=== PATIENT | female | born 1995 | race Asian ===

== ENCOUNTER 2020-09-19 16:44 | Emergency (ER) | payer MEDICAID ==
[~2020-09-19] VITALS: Ht 167.6 cm; Wt 86.2 kg
[2020-09-19 17:00] VITALS: BP_SYST 157
--- NOTE | 2020-09-19 17:00 | NUR ---
Patient to ER bed 7 to gown for evaluation. Side rails up. Report given to MEI.
--- NOTE | 2020-09-19 17:05 | NUR ---
PT AAO REPORTING VAGINAL BLEEDING FOR THE PAST MONTH WITH BLOOD CLOTS. PT REPORTS DIZZINESS AND WEAKNESS CURRENTLY AND 3/10 CRAMPING PAIN.
--- NOTE | 2020-09-19 17:10 | NUR ---
DR STEVENSON IN TO ASSESS
[2020-09-19 17:58] LABS: BILIRUBIN,URINE NEGATIVE (NEGATIVE); BLOOD, URINE 3+ (NEGATIVE); CLARITY/URINE CLOUDY (CLEAR); COLOR,URINE YELLOW (YELLOW); GLUCOSE,URINE NEGATIVE (NEGATIVE); KETONES,URINE TRACE (NEGATIVE); LEUKOCYTE ESTERASE ,URINE NEGATIVE (NEGATIVE); NITRITE, URINE NEGATIVE (NEGATIVE); PROTEIN URINE NEGATIVE (NEGATIVE); UROBILINOGEN,URINE 0.2 (0.2-1.0)
[2020-09-19 18:09] LABS: BACTERIA,URINE MANY /HPF (None Seen); RBC,URINE >100 /HPF (0-3); WBC,URINE 0-3 /HPF (0-3)
--- NOTE | 2020-09-19 18:10 | NUR ---
LABS OBTAINED, PT CALM, ALERT, RESP UNLABORED, SKIN WARM AND DRY. DENIES CP/SOB
--- NOTE | 2020-09-19 18:26 | NUR ---
TOLERATING PO INTAKE WELL
[2020-09-19 18:31] LABS: BASOPHILS % (AUTO) 0.2 % (0.0-2.0); EOSINOPHILS % (AUTO) 0.4 % (0.0-4.0); HEMATOCRIT 32.5 % (36-48); HEMOGLOBIN 9.9 g/dL (12.0-16.0); LYMPHOCYTES # (AUTO) 1.5 K/uL (1.0-5.5); LYMPHOCYTES % (AUTO) 15.6 % (20.5-51.5); MEAN CORPUSCULAR HEMOGLOBIN 19 pg (27-31); MEAN CORPUSCULAR HGB CONC 31 % (32-36); MEAN CORPUSCULAR VOLUME 61 fL (79.0-98.0); MONOCYTES # (AUTO) 0.5 K/uL (0.0-1.0); MONOCYTES % (AUTO) 4.9 % (1.7-9.3); NEUTROPHILS # (AUTO) 7.7 K/uL (1.8-7.7); NEUTROPHILS % (AUTO) 78.9 % (40.0-70.0); PLATELET COUNT (AUTO) 293 K/uL (130-430); RED BLOOD CELL COUNT(AUTO) 5.37 MIL/uL (4.2-6.2); RED CELL DISTRIBUTION WIDTH 22.3 % (9.0-15.0); WHITE BLOOD COUNT (AUTO) 9.8 K/uL (4.8-10.8)
[2020-09-19] MEDS ORDERED: SULFAMETHOXAZOLE/TRIMETHOPR DS 1 TABLET PO ONE (19:00)
--- NOTE | 2020-09-19 19:24 | NUR ---
OFF TO ULTRASOUND, STEADY GAIT
[2020-09-19 20:41] VITALS: BP_SYST 136
--- NOTE | 2020-09-19 20:43 | NUR ---
Patient given written and verbal discharge instructions and verbalizes understanding. ER MD discussed with patient the results and treatment provided. Patient in stable condition. ID arm band removed. Rx of given. Patient educated on pain management and to follow up with PMD. Pain Scale 0/10 Opportunity for questions provided and answered. Medication side effect fact sheet provided.
== END 2020-09-19 20:43 | disposition home or self-care (01) ==
LOC: SED 16:44
DX: N83.202 Unspecified ovarian cyst, left side (principal); N93.8 Other specified abnormal uterine and vaginal bleeding; R82.71 Bacteriuria
CPT/HCPCS: 36415; 76856-TC; 81000-TC; 84702-TC; 85025; 86900; 86901; 87086; 99284